=== PATIENT | female | born 1955 | race Caucasian/White ===

== ENCOUNTER → 2016-09-22 09:54 | Outpatient (CLI) | payer OTHER ==
[2016-06-19 06:27] VITALS: BMI 44.6
[~2016-09-22 09:54] MED LIST: ASPIRIN 81 MG E81 MG PO; CARAFATE1 G PO; COZAAR100 MG PO; DEXILANT60 MG PO; FISH OIL 500 MG1 CAP PO; FLUTICASONE PRO16 GM NASAL; HYDROCHLOROTHIA50 MG PO; HYDROCODON-ACE1 EAC7 PO; HYDROCODONE-APA1 TAB PO; INDERAL LA120 MG PO; IPRAT-ALBUT 0.5-3 ML UPD; K-DUR20 MEQ PO; LINZESS145 MCG PO; LIPITOR40 MG PO; MULTI-DAY VITAM1 TAB PO; NITROQUICK0.4 MG SL; PAMELOR 25 MG C25 MG PO; PAMELOR10 MG PO; PLAVIX75 MG PO; PRILOSEC20 MG PO; PRINIVIL10 MG PO; PROPRANOLOL HCL80 MG PO; PROTONIX40 MG PO; PULMICORT180 MCG/AE INH; RESTORIL15 MG PO; SINGULAIR10 MG PO; SYNTHROID125 MCG PO; VALIUM5 MG PO; VENTOLIN HFA18 GM INH; VITAMIN D250000 UNIT PO
== END | disposition home or self-care (01) ==
LOC: D.RAD 09:54
DX: J45.909 Unspecified asthma, uncomplicated (principal)

== ENCOUNTER → 2016-12-12 12:55 | Outpatient (CLI) | payer OTHER ==
[2016-06-19 06:27] VITALS: BMI 44.6
[2016-12-12 13:46] LABS: BASOPHILS 0.2 % (0-2); EOSINOPHILS 1.9 % (0-7); HEMATOCRIT 36.6 % (36.0-48.0); IMMATURE GRANULOCYTES 0.8 % (0-5); LYMPHOCYTES 22.7 % (15-50); MCH 29.8 pg (26.0-34.0); MCHC 32.8 g/dL (31.0-37.0); MCV 90.8 fL (80.0-100.0); MEAN PLATELET VOLUME 9.3 fL (7.4-10.4); MONOCYTES 8.7 % (2-11); NEUTROPHILS 65.7 % (40-80); PLATELET COUNT 197 10x3/uL (130-400); RBC 4.03 10x6/uL (4.00-5.40); WBC 9.8 10x3/uL (4.8-10.8)
[2016-12-12 14:22] LABS: ALBUMIN 3.4 g/dL (3.4-5.0); ANION GAP 10.3 mmol/L (8-16); BILIRUBIN - TOTAL 0.3 mg/dL (0.2-1.3); CALCIUM 9.1 mg/dL (8.5-10.1); POTASSIUM - SERUM 4.3 mmol/L (3.5-5.1); PROTEIN - SERUM 7.1 g/dL (6.4-8.2)
[2016-12-12 14:50] LABS: ERYTHROCYTE SEDIMENTATION RATE 65 mm/hr (0-30)
[2016-12-13 06:13] LABS: RAPID PLASMA REAGIN Non Reactive (Non Reactive)
[2016-12-15 13:12] LABS: ANA REFLEX - DBL STRANDED DNA 1 IU/mL (0-9); ANA REFLEX - DIRECT Negative (Negative); ANA REFLEX - SJOGRENS AB SSA <0.2 AI (0.0-0.9); ANA REFLEX - SJOGRENS AB SSB <0.2 AI (0.0-0.9)
[2016-12-15 15:18] LABS: SMOOTH MUSCLE ABS (ACTIN) 6 Units (0-19)
[2016-12-15 16:13] LABS: ANCA - ANTIMYELOPEROXIDASE <9.0 U/mL (0.0-9.0); ANCA - ANTIPROTEINASE 3 <3.5 U/mL (0.0-3.5); ANCA - ATYPICAL <1:20 titer (Neg:<1:20); ANCA - CYTOPLASMIC <1:20 titer (Neg:<1:20); ANCA - PERINUCLEAR <1:20 titer (Neg:<1:20)
[2016-12-16 13:16] LABS: SINGLE-STRANDED DNA ABS <20 EU (0-19)
== END | disposition home or self-care (01) ==
LOC: D.LAB 12-11 16:15
PROVIDERS: Psychiatry & Neurology Neurology
DX: G60.3 Idiopathic progressive neuropathy (principal)

== ENCOUNTER → 2017-06-24 09:51 | Outpatient (CLI) | payer OTHER ==
[2016-06-19 06:27] VITALS: BMI 44.6
== END | disposition home or self-care (01) ==
LOC: D.RT 09:51
DX: J45.909 Unspecified asthma, uncomplicated (principal)

== ENCOUNTER → 2017-07-30 16:44 | Outpatient (CLI) | payer OTHER ==
[2016-06-19 06:27] VITALS: BMI 44.6
== END | disposition home or self-care (01) ==
LOC: D.MAMMO 07-29 11:45
DX: Z12.31 Encounter for screening mammogram for malignant neoplasm of breast (principal)

== ENCOUNTER → 2018-08-11 19:06 | Outpatient (CLI) | payer OTHER ==
[2016-06-19 06:27] VITALS: BMI 44.6
== END | disposition home or self-care (01) ==
LOC: D.MAMMO 14:30
DX: Z12.31 Encounter for screening mammogram for malignant neoplasm of breast (principal)

== ENCOUNTER → 2018-08-26 10:29 | Outpatient (CLI) | payer OTHER ==
[2016-06-19 06:27] VITALS: BMI 44.6
== END | disposition home or self-care (01) ==
LOC: D.RT 07-05 11:00 → D.RAD 07-05 12:15 → D.RT 10:29
DX: J45.909 Unspecified asthma, uncomplicated (principal)

== ENCOUNTER 2019-10-28 09:00 | Outpatient (CLI) | payer MEDICARE, OTHER ==
[2016-06-19 06:27] VITALS: BMI 44.6
== END 2019-10-28 10:00 | disposition home or self-care (01) ==
LOC: D.MAMMO 09:00
PROVIDERS: ATTEND Family Medicine
DX: Z12.31 Encounter for screening mammogram for malignant neoplasm of breast (principal)

== ENCOUNTER 2020-02-03 16:03 | Emergency (ER) | payer MEDICARE, OTHER ==
[~2020-02-03] VITALS: Ht 167.6 cm; Wt 129.5 kg
[2020-02-03 16:37] VITALS: Ht 167.6 cm; Wt 129.5 kg
[2020-02-03] MEDS ORDERED: TYLENOL W/CODEI1 TAB PO (16:41)
[2020-02-03] MEDS ORDERED: HYDROCODON-ACE1 EA10 PO (19:15)
[2020-02-03 20:21] VITALS: BP 127/58
== END 2020-02-03 20:22 | disposition home or self-care (01) ==
LOC: D.ER 16:03
DX: S92.321A Displaced fracture of second metatarsal bone, right foot, initial encounter for closed fracture (principal); S92.331A Displaced fracture of third metatarsal bone, right foot, initial encounter for closed fracture; S92.341A Displaced fracture of fourth metatarsal bone, right foot, initial encounter for closed fracture; E03.9 Hypothyroidism, unspecified; G62.9 Polyneuropathy, unspecified; I10 Essential (primary) hypertension; J45.909 Unspecified asthma, uncomplicated; X58.XXXA Exposure to other specified factors, initial encounter; Y93.89 Activity, other specified; Y92.9 Unspecified place or not applicable

== ENCOUNTER → 2020-02-06 17:10 | Outpatient (CLI) | payer MEDICARE, OTHER ==
[2020-02-03 16:37] VITALS: BMI 46.1
[~2020-02-06 17:10] MED LIST changes: +HYDROCODON-ACE1 EA10 PO; +TYLENOL W/CODEI1 TAB PO
== END | disposition home or self-care (01) ==
LOC: D.MRI 16:30
PROVIDERS: ATTEND Orthopaedic Surgery
DX: S92.301A Fracture of unspecified metatarsal bone(s), right foot, initial encounter for closed fracture (principal)